=== PATIENT | female | born 1995 | race Two or more races ===

== ENCOUNTER 2021-04-24 17:38 | Emergency (ER) | payer BC ==
[~2021-04-24] VITALS: Ht 167.6 cm; Wt 68.0 kg
--- NOTE | 2021-04-24 18:11 | NUR ---
THE PATIENT IS BIBS FOR "FAINTING SPELLS" SINCE TUESDAY. FAINTED TODAY IN THE BATHROOM AT WORK. THE PATIENT IS ALERT AND ORIENTED X4. DENIES PAIN. IN ROOM AIR AND DENIES SOB. RESPIRATION REGULAR AND UNLABORED. WILL CONTINUE TO MONITOR THE PATIENT.
[2021-04-24] MEDS ORDERED: IV NS 0.9% 1,000 ML BAG IV ONE (18:30)
[2021-04-24 18:44] LABS: BASOPHILS % (AUTO) 0.5 % (0.0-2.0); EOSINOPHILS % (AUTO) 0.6 % (0.0-6.0); HEMATOCRIT 39 % (33-45); LYMPHOCYTES # (AUTO) 2.2 K/uL (0.8-4.8); LYMPHOCYTES % (AUTO) 35.7 % (20.0-44.0); MEAN CORPUSCULAR HGB CONC 33 g/dl (31.0-36.0); MEAN CORPUSCULAR VOLUME 91 fL (82-100); MONOCYTES # (AUTO) 0.5 K/uL (0.1-1.30); MONOCYTES % (AUTO) 8.2 % (2.0-12.0); NEUTROPHILS # (AUTO) 3.5 K/uL (1.8-8.9); PLATELET COUNT (AUTO) 309 K/uL (150-450); RED BLOOD CELL COUNT(AUTO) 4.31 MIL/uL (4.0-5.2); WHITE BLOOD COUNT (AUTO) 6.3 K/uL (4.3-11.0)
[2021-04-24 18:57] LABS: CALCIUM, SERUM 8.7 mg/dL (8.5-10.1); POTASSIUM 3.3 mmol/L (3.5-5.1)
[2021-04-24] MEDS ORDERED: POTASSIUM CHLORIDE 20 MEQ TAB.PRT.SR PO ONE ×2 (19:16→19:30)
--- NOTE | 2021-04-24 19:24 | NUR ---
RECIEVED REPORT FROM JUSTYNA ROY
--- NOTE | 2021-04-24 19:45 | NUR ---
Patient discharged to home in stable condition. Written and verbal after care instructions given. Patient verbalizes understanding of instruction.
[2021-04-24 19:47] VITALS: BP 120/80
== END 2021-04-24 19:47 | disposition home or self-care (01) ==
LOC: ER 17:41
DX: R55 Syncope and collapse (principal); E87.6 Hypokalemia; F31.9 Bipolar disorder, unspecified; F90.9 Attention-deficit hyperactivity disorder, unspecified type
CPT/HCPCS: 36415; 71045; 80048; 82962; 84703; 85025; 85730; 93005; 96360; 99285; J7030